=== PATIENT | female | born 2000 | race Hispanic/Latino ===

== ENCOUNTER 2023-02-21 19:28 | Emergency (ER) | payer SELFPAY ==
[2023-02-21 20:54] LABS: Specific Gravity > 1.030 (1.005-1.030); Urine Bacteria <20 /HPF (<20); Urine Bilirubin NEGATIVE (Negative); Urine Blood Negative (Negative); Urine Clarity Clear (Clear); Urine Color Light-Yellow (Yellow); Urine Glucose NEGATIVE (Negative); Urine Mucus 1+ /HPF (None Seen); Urine Protein TRACE (Negative); Urine RBC <5 /HPF (None Seen); Urine Urobilinogen Normal (Normal)
[2023-02-21 20:57] LABS: Specific Gravity 1.032 (1.005-1.030)
--- NOTE | 2023-02-21 23:59 | EDPHYS ---
Physician Documentation [facility] Name: Johnna Munoz Age: 22 yrs Sex: Female : 2000 Arrival Date: 02/21/2023 Time: 19:28 Bed 12 Private MD: ED Physician aPscual Woodard HPI: 02/21 20:20 This 22 yrs old Female presents to ER via Ambulatory with complaints of cp Abdominal Pain - LLQ, Flank Pain. 20:20 The patient presents with abdominal pain in the left lower quadrant. Onset: The cp symptoms/episode began/occurred 2 day(s) ago. The symptoms do not radiate. Associated signs and symptoms: Pertinent negatives: dysuria, fever, vaginal discharge. The symptoms are described as achy. Severity of pain: in the emergency department the pain is unchanged despite home interventions. Patient reports LMP was January 2023 and concerned pain may be due to being . 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 - Social history:: Smoking status: Patient denies any tobacco usage or history of. ROS: 20:25 Constitutional: Negative for body aches, chills, fever, poor PO intake. cp 20:25 Eyes: Negative for injury, pain, redness, and discharge. cp 20:25 Cardiovascular: Negative for chest pain. 20:25 Respiratory: Negative for cough, shortness of breath, wheezing. 20:25 Abdomen/GI: Positive for abdominal pain, of the left lower quadrant, Negative for vomiting, diarrhea, constipation, anorexia. 20:25 : Negative for urinary symptoms, flank pain, vaginal bleeding, vaginal discharge. 20:25 Neuro: Negative for altered mental status, dizziness, headache, weakness. 20:25 All other systems are negative. Exam: 20:30 Constitutional: The patient appears in no acute distress, alert, awake, non-toxic, well cp developed, well nourished. 20:30 Head/Face: Normocephalic, atraumatic. cp 20:30 Eyes: Periorbital structures: appear normal, Conjunctiva: normal, no exudate, no injection, Sclera: no appreciated abnormality, Lids and lashes: appear normal, bilaterally. 20:30 ENT: External ear(s): are unremarkable, Nose: is normal, Mouth: Lips: moist, Oral mucosa: pink and intact, moist, Posterior pharynx: is normal, airway is patent, no erythema, no exudate. 20:30 Chest/axilla: Inspection: normal. 20:30 Cardiovascular: Rate: normal, Rhythm: regular. 20:30 Respiratory: the patient does not display signs of respiratory distress, Respirations: normal, no use of accessory muscles, no retractions, labored breathing, is not present, Breath sounds: are clear throughout, no decreased breath sounds, no stridor, no wheezing. 20:30 Abdomen/GI: Inspection: abdomen appears normal, Bowel sounds: active, all quadrants, Palpation: soft, in all quadrants, mild abdominal tenderness, in the left lower quadrant, rebound tenderness, is not appreciated, involuntary guarding, is not appreciated. 20:30 Back: pain, is absent, ROM is normal. Vital Signs: 20:09 Pulse 68; Resp 19; Temp 98.1(TE); Pulse Ox 100% on R/A; kd3 20:11 BP 153 / 89; kd3 20:11 Weight 72.57 kg; kd3 06 00:00 Pulse 65; Resp 16; Pulse Ox 99% ; ha1 MDM: 02/21 20:22 Patient medically screened. cp 21:00 Differential diagnosis: appendicitis, Ectopic , non-specific abd pain, Ovarian cp Torsion, Pelvic Inflammatory Disease, Pyelonephritis, Tubal Ovarian Abcess, Ureterolithiasis, urinary tract infection. 23:58 Data reviewed: vital signs, nurses notes, lab test result(s), urinalysis. Refusal of cp service: The patient/guardian displays adequate decision making capability and despite a detailed discussion of alternatives, benefits, risks, and consequences refuses: to wait for results of labs and declines having US performed. Patient requesting discharge to home. 02/21 20:11 Order name: Test, Urine; Complete Time: 22:26 02/21 23:58 Interpretation: Reviewed. 02/21 20:11 Order name: Urinalysis w/ reflexes; Complete Time: 22:26 02/21 23:58 Interpretation: Reviewed. 02/21 22:28 Order name: US Pelvis Complete 02/21 20:11 Order name: IV Saline Lock cp 02/21 20:11 Order name: Labs collected and sent cp Administered Medications: 02/22 00:13 Not Given (Patient Refused): NS 0.9% IV 500 ml IV at bolus once pf1 00:13 Not Given (Patient Refused): Ketorolac IVP 15 mg IVP once pf1 Disposition Summary: 02/21/23 23:59 Discharge Ordered Location: Home cp Problem: new cp Symptoms: have improved cp Condition: Stable cp Diagnosis - Lower abdominal pain, unspecified cp Followup: cp - With: Emergency Department - When: As needed - Reason: Worsening of condition Discharge Instructions: - Discharge Summary Sheet cp - Abdominal Pain, Adult cp Forms: - Medication Reconciliation Form cp - Thank You Letter cp - Antibiotic Education cp - Prescription Opioid Use cp Addendum: 02/24/2023 12:58 Co-signature as Attending Physician, Pascual Woodard DO I was immediately available on-site m s3 in the Emergency Department for consultation in the care of the patient. Signatures: Dispatcher [employer] EDDC Juan Manuel PA PA cp Sims, Marcus, DO DO ms3 Kenna Turner RN RN kd3 La Aldridge RN pf1
--- NOTE | 2023-02-21 23:59 | ER ---
Nurse's Notes [facility] Name: Johnna Munoz Age: 22 yrs Sex: Female : 2000 Arrival Date: 02/21/2023 Time: 19:28 Bed 12 Private MD: Diagnosis: Lower abdominal pain, unspecified Presentation: 02/21 20:09 Chief complaint: Patient states: I have had pain on the left side near where my ovary kd3 is. My last period was on the 29 of january. I am not sure if i am or not. Coronavirus screen: Vaccine status:. Coronavirus screen: Vaccine status: Patient reports receiving the 2nd dose of the covid vaccine. Ebola Screen: No symptoms or risks identified at this time. Initial Sepsis Screen: Does the patient meet any 2 criteria? No. Patient's initial sepsis screen is negative. Does the patient have a suspected source of infection? No. Patient's initial sepsis screen is negative. Risk Assessment: Do you want to hurt yourself or someone else? Patient reports no desire to harm self or others. Onset of symptoms. 20:09 Method Of Arrival: Ambulatory kd3 20:09 Acuity: JOSE 3 kd3 Triage Assessment: 20:13 General: Appears comfortable, Behavior is calm, cooperative. Pain: Complains of pain in ha1 pelvic Pain does not radiate. Pain currently is 5 out of 10 on a pain scale. Neuro: Level of Consciousness is awake, alert, obeys commands, Oriented to person, place, time, situation. Cardiovascular: Patient's skin is warm and dry. Respiratory: Airway is patent Respiratory effort is even, unlabored, Respiratory pattern is regular, symmetrical. GI: No signs and/or symptoms were reported involving the gastrointestinal system. 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 - Social history:: Smoking status: Patient denies any tobacco usage or history of. Screenin:13 [facility] ED Fall Risk Assessment (Adult) History of falling in the last 3 months, ha1 including since admission No falls in past 3 months (0 pts) Confusion or Disorientation No (0 pts) Intoxicated or Sedated No (0 pts) Impaired Gait No (0 pts) Mobility Assist Device Used No (0 pt) Altered Elimination No (0 pt) Score/Fall Risk Level 0 - 2 = Low Risk Oriented to surroundings, Maintained a safe environment, Educated pt \T\ family on fall prevention, incl call for assistance when getting out of bed. Abuse screen: Denies threats or abuse. Denies injuries from another. Nutritional screening: No deficits noted. Tuberculosis screening: No symptoms or risk factors identified. Assessment: 20:13 General: Appears comfortable, Behavior is calm, cooperative. Pain: Complains of pain in ha1 left side pelvic Pain does not radiate. Pain currently is 5 out of 10 on a pain scale. Quality of pain is described as crampy. 20:13 Neuro: Level of Consciousness is awake, alert, obeys commands, Oriented to person, ha1 place, time, situation. Cardiovascular: Patient's skin is warm and dry. Respiratory: Airway is patent Respiratory effort is even, unlabored, Respiratory pattern is regular, symmetrical. GI: Abdomen is flat, non-distended, Bowel sounds present X 4 quads. Abd is soft and non tender. : Reports cramping, in left lower quadrant(s) pain in left lower quadrant(s). 21:10 Reassessment: Patient and/or family updated on plan of care and expected duration. Pain ha1 level reassessed. Patient is alert, oriented x 3, equal unlabored respirations, skin warm/dry/pink. 22:10 Reassessment: Patient and/or family updated on plan of care and expected duration. Pain ha1 level reassessed. Patient is alert, oriented x 3, equal unlabored respirations, skin warm/dry/pink. 23:10 Reassessment: Patient and/or family updated on plan of care and expected duration. Pain ha1 level reassessed. Patient is alert, oriented x 3, equal unlabored respirations, skin warm/dry/pink. Vital Signs: 20:09 Pulse 68; Resp 19; Temp 98.1(TE); Pulse Ox 100% on R/A; kd3 20:11 BP 153 / 89; kd3 20:11 Weight 72.57 kg; kd3 06/ 00:00 Pulse 65; Resp 16; Pulse Ox 99% ; ha1 ED Course: 02/21 19:34 Patient arrived in ED. am2 19:35 Juan Manuel PA is PHCP. cp 19:35 Pascual Woodard DO is Attending Physician. cp 20:10 Triage completed. kd3 20:10 Arm band placed on right wrist. kd3 20:13 Patient has correct armband on for positive identification. Placed in gown. Bed in low ha1 position. Call light in reach. Side rails up X 1. 23:47 US Pelvis Complete In Process Unspecified. EDMS 02/22 00:14 No provider procedures requiring assistance completed. Patient did not have IV access pf1 during this emergency room visit. Administered Medications: 00:13 Not Given (Patient Refused): NS 0.9% IV 500 ml IV at bolus once pf1 00:13 Not Given (Patient Refused): Ketorolac IVP 15 mg IVP once pf1 Medication: 00:00 VIS not applicable for this client. ha1 Outcome: 02/21 23:59 Discharge ordered by . cp 02/22 00:14 Discharged to home ambulatory, with family. pf1 Condition: improved Discharge instructions given to patient, Instructed on discharge instructions, follow up and referral plans. Demonstrated understanding of instructions, follow-up care. 00:15 Patient left the ED. pf1 Signatures: Dispatcher [employer] EDPR Juan Manuel PA PA cp Nikky Flores am2 Kenna Turner RN RN kd3 Anu Neal RN RN ha1 La Aldridge RN RN pf1
[2023-02-22 00:38] VITALS: BP 153/89; TEMP 98.1; O2SAT 100
--- NOTE | 2023-02-22 07:58 | RAD REPORT ---
EXAM DESCRIPTION: US - Pelvis Complete - 02/21/2023 11:45 pm CLINICAL HISTORY: llq abdomen pain COMPARISON: No comparisons FINDINGS: Septated uterus suspected. The endometrial echo complex measures 10 millimeters. The uteru s measures 5.5 x 2.3 x 4.9 cm. Neither ovary visualized and presumably obscured by bowel gas. No adnexal abnormality identified. No significant pelvic ascites. IMPRESSION: 1. Septated uterus. 2. Neither ovary visualized. No free fluid.
== END 2023-02-22 00:15 | disposition home or self-care (01) ==
LOC: ER 19:28
DX: R10.32 Left lower quadrant pain (principal)
CPT/HCPCS: 76856; 81001; 81025; 99283

== ENCOUNTER 2023-03-12 16:04 | Emergency (ER) | payer SELFPAY ==
[2023-03-12 17:01] LABS: Absolute Lymphocytes (CBC) 3.4 K/uL (0.7-4.9); Hematocrit 38.9 % (36.0-45.0); Lymphocytes % 33.3 % (15.3-44.8); MCV 79.1 fL (80-100); MPV 8.9 fL (7.6-11.3); RBC Red Blood Cell Count 4.92 M/uL (3.86-4.86)
[2023-03-12] MEDS ORDERED: NA CHLORIDE 0.9% 1,000 ML ONE (17:01)
[2023-03-12] MEDS ORDERED: ONDANSETRON 4 MG/2 ML VIAL ONE (17:01)
[2023-03-12 17:04] LABS: Specific Gravity 1.027 (1.005-1.030)
[2023-03-12 17:09] LABS: Specific Gravity 1.027 (1.005-1.030); Urine Bacteria <20 /HPF (<20); Urine Bilirubin NEGATIVE (Negative); Urine Blood Negative (Negative); Urine Clarity Clear (Clear); Urine Color Light-Yellow (Yellow); Urine Crystals Unidentified Few /HPF (None Seen); Urine Glucose NEGATIVE (Negative); Urine Mucus Slight /HPF (None Seen); Urine Protein TRACE (Negative); Urine RBC <5 /HPF (None Seen); Urine Urobilinogen Normal (Normal)
[2023-03-12 17:39] LABS: Potassium 3.7 mEq/L (3.5-5.1)
--- NOTE | 2023-03-12 17:47 | RAD REPORT ---
EXAM DESCRIPTION: US - Transvaginal OB - 03/12/2023 5:37 pm CLINICAL HISTORY: NAUSEA/VOMITING COMPARISON: <Comparisons> FINDINGS: A single gestational sac is seen within the uterus. The shape of the sac is within normal limits for gestational age. Within the sac is a single pole with crown-rump length of 3 mm, cor relating to estimated gestational age of 6 weeks 1 day. Estimated date of delivery is 11/04/2023. Heart rate is 106 BPM. The placenta is not yet developed due to early gestational age. The maternal adnexa and left ovary are within normal limits. Normal Doppler blood flow was demonstrat ed to the left ovary. The right ovary is obscured by bowel gas. IMPRESSION: Single live early intrauterine gestation with estimated gestational age of 6 weeks 1 day , OSMAR 11/04/2023. Right ovary obscured by bowel gas.
--- NOTE | 2023-03-12 19:45 | EDPHYS ---
Physician Documentation [facility] Name: Johnna Munoz Age: 22 yrs Sex: Female : 2000 Arrival Date: 03/12/2023 Time: 16:04 Bed 7 Private MD: ED Physician Eliezer Fuentes HPI: 03/12 16:30 This 22 yrs old Female presents to ER via Ambulatory with complaints of cp Dizziness, General Weakness, +preg. 16:30 The patient presents with feeling faint, generalized weakness, lightheadedness. Onset: cp The symptoms/episode began/occurred gradually. Associated signs and symptoms: Pertinent positives: nausea, vomiting. Severity of symptoms: in the emergency department the symptoms are unchanged despite home interventions. Patient reports she recently found out she was . . Denies vaginal bleeding, denies abdominal pain. Has not established care with primary OB as of yet and goes to clinic. Historical: - Allergies: 16:09 PENICILLINS; ld1 - Home Meds: 16:09 None [Active]; ld1 - PMHx: 16:09 None; ld1 - PSHx: 16:09 None; ld1 - Immunization history:: Adult Immunizations up to date, Client reports receiving the 2nd dose of the Covid vaccine. - Social history:: Smoking status: Patient denies any tobacco usage or history of. Patient/guardian denies using alcohol. ROS: 16:35 Constitutional: Negative for body aches, chills, fever, poor PO intake. cp 16:35 Eyes: Negative for injury, pain, redness, and discharge. cp 16:35 ENT: Negative for drainage from ear(s), ear pain, sore throat, difficulty swallowing, difficulty handling secretions. 16:35 Cardiovascular: Negative for chest pain. 16:35 Respiratory: Negative for cough, shortness of breath, wheezing. 16:35 Abdomen/GI: Positive for nausea, vomiting, Negative for abdominal pain, diarrhea, constipation. 16:35 : Negative for urinary symptoms, vaginal bleeding. 16:35 Neuro: Positive for dizziness, weakness, Negative for altered mental status, headache, syncope. 16:35 All other systems are negative. Exam: 16:40 Constitutional: The patient appears in no acute distress, alert, awake, non-toxic, well cp developed, well nourished. 16:40 Head/Face: Normocephalic, atraumatic. cp 16:40 Eyes: Periorbital structures: appear normal, Conjunctiva: normal, no exudate, no injection, Sclera: no appreciated abnormality, Lids and lashes: appear normal, bilaterally. 16:40 ENT: External ear(s): are unremarkable, Nose: is normal, Mouth: Lips: moist, Oral mucosa: pink and intact, moist, Posterior pharynx: is normal, airway is patent, no erythema, no exudate. 16:40 Neck: ROM/movement: is normal, is supple, without pain, no range of motions limitations. 16:40 Chest/axilla: Inspection: normal. 16:40 Cardiovascular: Rate: normal, Rhythm: regular, Edema: is not appreciated. 16:40 Respiratory: the patient does not display signs of respiratory distress, Respirations: normal, no use of accessory muscles, no retractions, labored breathing, is not present, Breath sounds: are clear throughout, no decreased breath sounds, no stridor, no wheezing. 16:40 Abdomen/GI: Inspection: abdomen appears normal, Bowel sounds: active, all quadrants, Palpation: abdomen is soft and non-tender, in all quadrants. 16:40 Back: pain, is absent, ROM is normal. 16:40 Neuro: Orientation: to person, place \T\ time. Mentation: is normal, Cerebellar function: is grossly normal, Motor: moves all fours, strength is normal, Sensation: is normal, Gait: is steady, at a normal pace, without difficulty. Vital Signs: 16:08 BP 139 / 80; Pulse 68; Resp 18; Temp 98.5(TE); Pulse Ox 100% on R/A; Weight 72.57 kg; ld1 Height 5 ft. 3 in. ; Pain 0/10; 17:00 BP 119 / 63 Supine; Pulse 72; Pulse Ox 100% ; bp 17:02 BP 121 / 77 Standing; Pulse 70; Pulse Ox 100% ; bp 18:17 BP 114 / 64; Pulse 62; Resp 16; Pulse Ox 99% ; bp 19:00 BP 98 / 64; Pulse 66; Resp 16; Pulse Ox 98% ; vc1 19:53 BP 99 / 66; Pulse 78; Resp 16; Pulse Ox 100% on R/A; kl 16:08 Body Mass Index 28.34 (72.57 kg, 160.02 cm) ld1 16:08 Pain Scale: Adult ld1 MDM: 16:15 Patient medically screened. 17:00 Differential diagnosis: cardiac arrhythmia, generalized weakness, hypovolemia, cp . 19:40 Data reviewed: vital signs, nurses notes, lab test result(s), radiologic studies, cp ultrasound. 19:40 I considered the following discharge prescriptions or medication management in the cp emergency department Medications were administered in the Emergency Department. See MAR. Counseling: I had a detailed discussion with the patient and/or guardian regarding: the historical points, exam findings, and any diagnostic results supporting the discharge/admit diagnosis, lab results, radiology results, the need for outpatient follow up, for definitive care, an OB/Gyne specialist, to return to the emergency department if symptoms worsen or persist or if there are any questions or concerns that arise at home. Response to treatment: the patient's symptoms have markedly improved after treatment, and as a result, I will discharge patient. 03/12 16:31 Order name: Abo/rh Typing; Complete Time: 19:27 cp 03/12 16:31 Order name: Basic Metabolic Panel; Complete Time: 19:27 cp 03/12 19:27 Interpretation: Normal except: NA 135; GFR 85. 03/12 16:31 Order name: CBC with Diff; Complete Time: 19:27 03/12 19:28 Interpretation: Normal except: RBC 4.92; MCV 79.1; MCH 25.0; MCHC 31.6; EOSINOPHIL % cp 5.9; EOSA 0.6. 03/12 16:31 Order name: Test, Urine; Complete Time: 19:27 cp 03/12 19:28 Interpretation: Normal except: URINE PREG POS. cp 03/12 16:31 Order name: Quantitative Hcg; Complete Time: 19:27 03/12 19:28 Interpretation: Reviewed. 03/12 16:31 Order name: Urinalysis w/ reflexes; Complete Time: 19:27 03/12 16:31 Order name: US Transvaginal Ob; Complete Time: 19:27 cp 03/12 16:24 Order name: Orthostatics; Complete Time: 17:06 cp 03/12 16:31 Order name: IV Saline Lock; Complete Time: 16:47 cp 03/12 16:31 Order name: Labs collected and sent; Complete Time: 16:47 cp 03/12 16:31 Order name: NPO; Complete Time: 16:47 cp Administered Medications: 17:06 Drug: NS 0.9% IV 1000 ml Route: IV; Rate: 1 bolus; Site: right forearm; bp 17:06 Drug: Ondansetron IVP 4 mg Route: IVP; Site: right forearm; bp Disposition Summary: 03/12/23 19:44 Discharge Ordered Location: Home cp Problem: new cp Symptoms: have improved cp Condition: Stable cp Diagnosis - Other specified related conditions, first trimester cp - Nausea with vomiting, unspecified cp - Dizziness and giddiness cp - Weakness cp Followup: cp - With: Private Physician - When: 1 week - Reason: Recheck today's complaints Discharge Instructions: - Discharge Summary Sheet cp - Dizziness cp - Weakness cp - First Trimester of cp Forms: - Medication Reconciliation Form cp - Thank You Letter cp - Antibiotic Education cp - Prescription Opioid Use cp - [email or web address]_[email or web address] cp Prescriptions: - [id number] acd 29 mg iron- 1 mg Oral tablet,chewable - chew 1 tablet by ORAL route daily; 60 tablet; Refills: 0, Product Selection cp Permitted - Zofran 4 mg Oral Tablet - take 1 tablet by ORAL route every 12 hours As needed; 20 tablet; Refills: 0, cp Product Selection Permitted Signatures: Dispatcher [employer] EDJuan Mariscal PA PA cp Guido Zhao RN RN bp Renetta Woodard RN RN ld1
--- NOTE | 2023-03-12 19:45 | ER ---
Nurse's Notes [facility] Name: Johnna Munoz Age: 22 yrs Sex: Female : 2000 Arrival Date: 03/12/2023 Time: 16:04 Bed 7 Private MD: Diagnosis: Other specified related conditions, first trimester;Nausea with vomiting, unspecified;Dizziness and giddiness;Weakness Presentation: 03/12 16:08 Chief complaint: Patient states: + test yesterday. C/O weakness, fatigue, ld1 near syncope, dizzy, dry mouth. Coronavirus screen: At this time, the client does not indicate any symptoms associated with coronavirus-19. Ebola Screen: No symptoms or risks identified at this time. Initial Sepsis Screen: Does the patient meet any 2 criteria? No. Patient's initial sepsis screen is negative. Does the patient have a suspected source of infection? No. Patient's initial sepsis screen is negative. Risk Assessment: Do you want to hurt yourself or someone else? Patient reports no desire to harm self or others. Onset of symptoms was March 12, 2023 at 16:09. 16:08 Method Of Arrival: Ambulatory ld1 16:08 Acuity: JOSE 3 ld1 Triage Assessment: 16:09 General: Appears in no apparent distress. comfortable, Behavior is calm, cooperative, ld1 appropriate for age. Pain: Denies pain. EENT: No signs and/or symptoms were reported regarding the EENT system. Neuro: Level of Consciousness is awake, alert, obeys commands, Oriented to person, place, time, situation, Reports dizziness, weakness. Cardiovascular: Capillary refill < 3 seconds Patient's skin is warm and dry. Respiratory: Airway is patent Respiratory effort is even, unlabored. GI: Abdomen is flat, non-distended. : No signs and/or symptoms were reported regarding the genitourinary system. Derm: No signs and/or symptoms reported regarding the dermatologic system. Musculoskeletal: No signs and/or symptoms reported regarding the musculoskeletal system. Historical: - Allergies: 16:09 PENICILLINS; ld1 - Home Meds: 16:09 None [Active]; ld1 - PMHx: 16:09 None; ld1 - PSHx: 16:09 None; ld1 - Immunization history:: Adult Immunizations up to date, Client reports receiving the 2nd dose of the Covid vaccine. - Social history:: Smoking status: Patient denies any tobacco usage or history of. Patient/guardian denies using alcohol. Screenin:17 [facility] ED Fall Risk Assessment (Adult) History of falling in the last 3 months, bp including since admission No falls in past 3 months (0 pts). Abuse screen: Denies threats or abuse. Denies injuries from another. Nutritional screening: No deficits noted. Tuberculosis screening: No symptoms or risk factors identified. Assessment: 16:15 General: SEE TRIAGE NOTE. bp 18:24 Reassessment: PT RETURNED FROM US. bp 19:22 Reassessment: No changes from previously documented assessment. Patient and/or family vc1 updated on plan of care and expected duration. Pain level reassessed. Patient is alert, oriented x 3, equal unlabored respirations, skin warm/dry/pink. 19:53 Reassessment: Patient appears in no apparent distress at this time. Patient denies pain kl at this time. Patient states symptoms have improved. Vital Signs: 16:08 BP 139 / 80; Pulse 68; Resp 18; Temp 98.5(TE); Pulse Ox 100% on R/A; Weight 72.57 kg; ld1 Height 5 ft. 3 in. ; Pain 0/10; 17:00 BP 119 / 63 Supine; Pulse 72; Pulse Ox 100% ; bp 17:02 BP 121 / 77 Standing; Pulse 70; Pulse Ox 100% ; bp 18:17 BP 114 / 64; Pulse 62; Resp 16; Pulse Ox 99% ; bp 19:00 BP 98 / 64; Pulse 66; Resp 16; Pulse Ox 98% ; vc1 19:53 BP 99 / 66; Pulse 78; Resp 16; Pulse Ox 100% on R/A; kl 16:08 Body Mass Index 28.34 (72.57 kg, 160.02 cm) ld1 16:08 Pain Scale: Adult ld1 ED Course: 16:05 Patient arrived in ED. am2 16:09 Triage completed. ld1 16:09 Arm band placed on right wrist. ld1 16:11 Terri Faye RN is Primary Nurse. ko1 16:15 Juan Manuel PA is PHCP. cp 16:15 Constantine Argueta MD is Attending Physician. cp 16:25 Eliezer Fuentes MD is Attending Physician. cp 16:47 Inserted saline lock: 20 gauge in right forearm, using aseptic technique. Blood bp collected. 17:39 US Transvaginal Ob In Process Unspecified. EDMS 18:17 Patient has correct armband on for positive identification. Bed in low position. Call bp light in reach. Side rails up X2. Adult w/ patient. 19:53 No provider procedures requiring assistance completed. IV discontinued, intact, kl bleeding controlled, No redness/swelling at site. Pressure dressing applied. Administered Medications: 17:06 Drug: NS 0.9% IV 1000 ml Route: IV; Rate: 1 bolus; Site: right forearm; bp 17:06 Drug: Ondansetron IVP 4 mg Route: IVP; Site: right forearm; bp Outcome: 19:44 Discharge ordered by MD. cp 19:54 Discharged to home ambulatory. kl 19:54 Condition: stable 19:54 Discharge instructions given to patient, family, Instructed on discharge instructions, follow up and referral plans. medication usage, Demonstrated understanding of instructions, follow-up care, medications, Prescriptions given X 2. 19:54 Patient left the ED. kl Signatures: Dispatcher [employer] EDMS Dianne Comer RN RN Juan Browning, PA PA cp Nikky Flores am2 Guido Zhao RN RN bp Renetta Woodard RN RN ld1 Isabela Mcfarland RN RN vc1 Terri Faye RN RN ko1
[2023-03-12 20:10] VITALS: TEMP 98.5
[2023-03-12 20:20] VITALS: BP 99/66; O2SAT 100
== END 2023-03-12 19:54 | disposition home or self-care (01) ==
LOC: ER 16:04
DX: O26.891 Other specified pregnancy related conditions, first trimester (principal); R11.2 Nausea with vomiting, unspecified; Z3A.01 Less than 8 weeks gestation of pregnancy
CPT/HCPCS: 36415; 76817; 80048; 81001; 81025; 84702; 85025; 86900; 86901; 96374; 99284; J2405; J7030